=== PATIENT | female | born 2005 | race Caucasian/White ===

== ENCOUNTER 2025-05-06 06:44 | Day surgery (SDC) | payer OTHER, SELFPAY ==
[2025-04-23 09:13] VITALS: BMI 22.6
[2025-05-06] VITALS (7 sets, daily range): BP systolic 101–130; BP diastolic 62–87; PULSE 68–94; RESP 12–18; TEMP 36.1–37; O2SAT 100
--- NOTE | 2025-05-06 07:51 | WPDHPUPDATE1 ---
History and Physical Update Update Date/Time: 05/06/25 07:51 History and Physical has been reviewed, including an updated exam of the patient. There are NO changes in the patient's condition. Risks, benefits, and alternatives have been discussed and questions answered. Patient agrees to proceed with procedure.
--- OUTSIDE RECORDS SUMMARY | 2025-05-06 08:27 | XMS_ITS | Referral Summary ---
Author Organization [facility] Address [address] [place] [phone] Care Team Providers Care Video Operator Name Role Phone Evelin Mac MD Primary Care Prov ider Encounters Date Type Department Care Team Description 04/03/2025 Results Follow-Up [facility] at [address] [place] [phone] Evelin Mac MD Hepatitis C (HCV) RNA PCR, quantitative Blood, Hepatitis B Surface Antigen Blood, Hepatitis B surface antibody (immune status) Blood, Additional followed-up results: 2 03/28/2025 Orders Only [facility] at [address] [place] [address] Evelin Mac MD Need for hepatitis B screening test (Primary Dx) 03/28/2025 10:14 AM CDT - 03/28/2025 11:59 PM CDT Hospital Encounter [address] [id number] Need for hepatitis C screening test; Need for hepatitis B screening test; Encounter for screening for HIV; Projectile vomiting, unspecified whether nausea present Discharge Disposition: Discharge to home or self care 03/28/2025 Orders Only [facility] at [address] [place] [phone] Evelin Mac MD Hx of infectious mononucleosis (Primary Dx) 03/28/2025 10:15 AM CDT Lab [facility] Outpatient Lab at [address] [phone] 03/28/2025 Telephone [facility] at [address] [phone] Evelin Mac MD 03/28/2025 8:30 AM CDT Office Visit [facility] at [address] [phone] Evelin Mac MD Hx of infectious mononucleosis (Primary Dx); Projectile vomiting, unspecified whether nausea present; Dysuria; Encounter for screening for HIV; Need for hepatitis B screening test; Need for hepatitis C screening test 03/15/2025 6:08 PM CDT - 03/15/2025 11:59 PM CDT Hospital Encounter [address] [address] Abdominal pain Discharge Disposition: Discharge to home or self care 03/15/2025 Results Follow-Up [facility] [place] [address] [place] [phone] Alyssa Judge NP POCT urinalysis dipstick, Urine culture Urine, clean voided 03/15/2025 12:30 PM CDT Office Visit [facility] [place] [address] [place] [phone] Alyssa Judge NP Suspected COVID-19 virus infection (Primary Dx); Abdominal pain; Viral syndrome from Last 3 Months Allergies No known active allergies Medications NuvaRing 0.12-0.015 mg/24 hr vaginal ring 03/30/2020 Act yokasta Active Problems Problem Noted Date Diagnosed Date Encounter for screening for HIV 03/28/2025 Assessment & Plan (03/28/2025 9:53 AM CDT): -Patient agrees to HIV screening today Need for hepatitis B screening test 03/28/2025 Assessment & Plan (03/28/2025 9:53 AM CDT): -Patient agrees to hepatitis-B screening today Need for hepatitis C screening test 03/28/2025 Assessment & Plan (03/28/2025 9:54 AM CDT): -Patient agrees to hepatitis-C screening today Projectile vomiting 03/28/2025 Assessment & Plan (03/28/2025 9:54 AM CDT): -Chronic condition for past 2 years, worsened over past year -Differentials include celiac disease, gluten sensitivity, lactose intolerance, or IBS -Plan is to have patient keep a food diary and to initiate FODMAP diet to see source of symptoms. We will also test patient for celiac disease today Dysuria 03/28/2025 Assessment & Plan (03/28/2025 9:53 AM CDT): -Resolved problem, patient has no returning symptoms. 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 Monthly or less 03/28/2025 Q2: How many drinks containi ng alcohol do you have on a typical day when you are drinking? 1 or 2 03/28/2025 Q3: How often do you have si x or more drinks on one occasion? Never 03/28/2025 PHQ-2 Answer Date Recorded PHQ-2 Total Score (If total score is 3 or more points, staff should administer the PHQ-9) 0 03/28/2025 Comments No Sex and Gender Information Value Date Recorded Sex Assigned at Not on file Legal Sex Female 12:24 AM [employer] Gender Identity Not on file Sexual Orientation Not on file Last Filed Vital Signs Vital Sign Reading Time Taken Comments Blood Pressure 110/58 03/28/2025 8:30 AM CDT Pulse 66 03/28/2025 8:30 AM CDT Temperature 36.9 C (98.4 F) 03/15/2025 12:30 PM CDT Respiratory Rate 16 03/28/2025 8:30 AM CDT Oxygen Saturation 98% 03/28/2025 8:30 AM CDT Inhaled Oxygen Concentration - - Weight 62.6 kg (138 lb 1.6 oz) 03/28/2025 8:30 A M CDT Height 167.6 cm (5' 6) 03/28/2025 8:30 AM CDT Body Mass Index 22.29 03/28/2025 8:30 AM CDT Plan of Treatment Not on file Procedures Procedure Name Priority Date/Time Associated Diagnosis Comments TISSUE TRANSGLUTAMINASE, IGA Routine 03/28/2025 10:14 AM CDT Projectile vomiting, unspecified whether nausea present HIV 1/2 ANTIBODY PLUS P24 ANTIGEN Routine 03/28/2025 10:14 AM CDT Encounter for screening for HIV HEPATITIS B SURFACE ANTIBODY (IMMUNE STATUS) Routine 03/28/2025 10:14 AM CDT Need for hepatitis B screening test HEPATITIS B SURFACE ANTIGEN Routine 03/28/2025 10:14 AM CDT Need for hepatitis B screening test HEPATITIS C RNA, QUANTITATIVE, PCR Routine 03/28/2025 10:14 AM CDT Need for hepatitis C screening test POCT URINALYSIS DIPSTICK Routine 03/28/2025 8:47 AM CDT Dysuria POCT HCG, URINE Routine 03/15/2025 12:52 PM CDT Abdominal pain URINE CULTURE Routine 03/15/2025 12:42 PM CDT Abdominal pain POCT URINALYSIS DIPSTICK Routine 03/15/2025 12:41 PM CDT Suspected COVID-19 virus infection Abdominal pain POCT RAPID STREP Routine 03/15/2025 12:3 9 PM CDT Suspected COVID-19 virus infection POCT INFLUENZA A/B Routine 03/15/2025 12 :39 PM CDT Suspected COVID-19 virus infection Abdominal pain COVID-19 POC Routine 03/15/2025 12:39 PM CDT Suspected COVID-19 virus infection Abdominal pain from Last 3 Months Results * HIV 1/2 Antibody plus p24 Antigen Blood (03/28/2025 10:14 AM CDT) HIV 1/2 ab + p24 ag Nonreactive Nonreactive Comment: Nonreactive for HIV-1 antigen and HIV-1/HIV-2 antibodies. No laboratory evidence of HIV infection. If acute HIV infection is suspected, consider testing for HIV-1 RNA. Blood 03/28/2025 10:1 4 AM CDT 03/28/2025 2:09 PM CDT Evelin Mac MD LAB MICROBIOLOGY - GENERAL ORDERABLES Final Result SKY [id number] Department [place] [address] * Tissue transglutaminase IgA (TGG-IgA Ab) (03/28/2025 10:14 AM CDT) TTG ab, IgA <0.5 <=14.9 units/mL Comment: Interpretive data Negative: <15 units/mL Positive: > or equal to 15 units/mL Current interpretive data was last revised on 2017. Testing performed by: [facility], [address] [place]., [address] Blood 03/28/2025 10:1 4 AM CDT 03/28/2025 5:14 PM CDT us Evelin Mac MD LAB BLOOD ORDERABL ES Final Result Performing Organization Address [facility] de Phone Number SKY [address] [place] [address] * Hepatitis C (HCV) RNA PCR, quantitative Blood (03/28/2025 10:14 AM CDT) [facility] HCV RNA result Not Detected [facility] Comment: The quantifiable range of this assay is 15 IU/mL to 100,000,000 IU/mL (1.18 log IU/mL to 8.00 log IU/mL). Testing was performed by the [facility]IG[facility] 6800 HCV Test ([employer] Testing performed at [facility] Current Interpretive Data was last revised on 2021 Testing performed by: [facility], [address] [place]., [address] Blood 03/28/2025 10:1 4 AM CDT 03/28/2025 5:57 PM CDT us Evelin Mac MD LAB MICROBIOLOGY - GENERAL ORDERABLES Final Result Performing Organization Address [facility] [place] Number [place] [address] [address] [place] [address] [facility] * Hepatitis B surface antibody (immune status) Blood (03/28/2025 10:14 AM CDT) [facility] HBsAb (immune status) Nonreactive Comment: Interpretive Data Nonreactive: This result is consistent with a lack of immunity to Hepatitis B Virus when used in the setting of routine screening. Equivocal: The immune status of the individual should be further assessed, if appropriate, after consideration of clinical status, risk factors, and additional diagnostic information. Reactive: This result is consistent with immunity to Hepatitis B Virus when used in the setting of routine screening. Current interpretive data was last revised on 20. Blood 03/28/2025 10:1 4 AM CDT 03/28/2025 2:09 PM CDT us Evelin Mac MD LAB MICROBIOLOGY - GENERAL ORDERABLES Final Result Performing Organization Address [facility] Co de Phone Number SKY [id number] [facility] [place] [address] * Hepatitis B Surface Antigen Blood (03/28/2025 10:14 AM CDT) Pathologist [facility] HepBsAg Nonreactive Nonreactive Blood 03/28/2025 10:1 4 AM CDT 03/28/2025 2:09 PM CDT us Evelin Mac MD LAB MICROBIOLOGY - GENERAL ORDERABLES Final Result Performing Organization Address [facility] de Phone Number SKY [address] [facility] [place] [address] * (ABNORMAL) POCT urinalysis dipstick (03/28/2025 8:47 AM CDT) Color, Urine, POC Yellow Clarity, ur, POC Cloudy(A) Clear Glucose, ur, POC Negative Negative Bilirubin, ur, POC Negative Negative Ketones, ur, POC Negative Negative Specific [place], POC 1.020 1.003 - 1.030 Blood, ur, POC Hemolyzed, trace(A) Negative pH, ur, POC 6.0 5.0 - 8.0 Protein, ur, POC Negative Negative Urobilinogen, urine, POC 0.2 0.2 - 1.0 mg/dL Nitrite, ur, POC Negative Negative Leukocytes, ur, POC Large(A) Negative Lot Number [id number] Urine 03/28/2025 8:47 AM CDT us Evelin Mac MD POINT OF CARE TEST ORDERABLES Final Result * POCT hCG, urine (03/15/2025 12:52 PM CDT) HCG, ur, POC Negative Negative Lot Number [id number] QC Backgroud Clear Acceptable QC Control Line Acceptable Urine 03/15/2025 12:5 2 PM CDT Alyssa Judge NP POINT OF CARE TEST ORDERAB LES Final Result * (ABNORMAL) Urine culture Urine, clean voided (03/15/2025 12:42 PM CDT) Report Final Report: Greater than or equal to 100,000 colonies/mL of Klebsiella pneumoniae (.) Comment:Testing performed by : [facility], [address] [place]., [address] Organism KLEBSIELLA PNEUMONIAE [facility]Y [place] Urine, clean voided 03/15/2025 12:42 PM CDT 03/15/2025 7:47 PM CDT Narrative SKY - 03/17/2025 1:10 PM CDT Testing performed by [facility] Microbiology Laboratory ([phone]) Organism Antibiotic Method Susceptibility Klebsiella pneumoniae Ampicillin INTERPRETATION Resistant Klebsiella pneumoniae Cefazolin INTERPRETATION Susceptible Klebsiella pneumoniae Nitrofurantoin INTERPRETATION Susceptible Klebsiella pneumoniae Gentamicin INTERPRETATION Susceptible Klebsiella pneumoniae Trimethoprim with Sulfamethoxazole INTERPRETATION Resistant Klebsiella pneumoniae Meropenem INTERPRETATION Susceptible Klebsiella pneumoniae Cefepime INTERPRETATION Susceptible Klebsiella pneumoniae Ciprofloxacin INTERPRETATION Susceptible Klebsiella pneumoniae Ceftazidime INTERPRETATION Susceptible Klebsiella pneumoniae Ceftriaxone INTERPRETATION Susceptible Klebsiella pneumoniae Piperacillin/Tazobactam INTERPRE TATION Susceptible Klebsiella pneumoniae Cephalexin INTERPRETATION Susceptible Klebsiella pneumoniae Cefuroxime-axetil INTERPRETATION Susceptible Klebsiella pneumoniae Cefdinir INTERPRETATION Susceptible Alyssa Judge NP LAB MICROBIOLOGY - GENERAL ORDERABLES Final Result SKY [place] [address] Department [place] [address] * (ABNORMAL) POCT urinalysis dipstick (03/15/2025 12:41 PM CDT) [facility] Color, Urine, POC Annel Clarity, ur, POC Clear Clear Glucose, ur, POC Negative Negative Bilirubin, ur, POC Negative Negative Ketones, ur, POC Negative Negative Specific [place], POC 1.020 1.003 - 1.030 Blood, ur, POC Trace(A) Negative pH, ur, POC 6.0 5.0 - 8.0 Protein, ur, POC Negative Negative Urobilinogen, urine, POC 0.2 0.2 - 1.0 mg/dL Nitrite, ur, POC Negative Negative Leukocytes, ur, POC Small(A) Negative Lot Number [id number] Urine 03/15/2025 12:4 1 PM CDT Alyssa Judge NP POINT OF CARE TEST ORDERAB LES Final Result * COVID-19 POC (03/15/2025 12:39 PM CDT) [facility] COVID-19 Ag POC (BD Veritor) Presumptive Negative Presumptive Negative, Invalid [facility] Nasal 03/15/2025 12:3 9 PM CDT Result [facility] Alyssa Judge NP POINT OF CARE TEST ORDERAB LES Final Result [facility] [address] [place] [address] * POCT influenza A/B (03/15/2025 12:39 PM CDT) [facility] Rapid Influenza A Ag Negative Negative, Invalid Rapid Influenza B Ag Negative Negative, Invalid Nasal 03/15/2025 12:3 9 PM CDT Alyssa Judge NP POINT OF CARE TEST ORDERAB LES Final Result * POCT rapid strep A (03/15/2025 12:39 PM CDT) [facility] Rapid Strep A, POC Negative Negative Swab 03/15/2025 12:3 9 PM CDT Alyssa Judge NP POINT OF CARE TEST ORDERAB LES Final Result from Last 3 Months [facility] Care Teams Video Operator Relationship Specialty Start Date End Date Evelin Mac MD [address] [facility] [place] [address] PCP - General Family Medicine 03/28/25
--- OUTSIDE RECORDS SUMMARY | 2025-05-06 08:27 | XMS_ITS | Clinical Summary ---
Author Organization [facility] Address [facility] [place] [address] Care Team Providers Care Hot Saw Operator Name Role Phone Evelin Mac MD Primary Care Prov ider Allergies No known active allergies Medications NuvaRing [...] recur rent infections and monocytosis 03/28/2025 03/28/2025 Encounters Date Type Department Care Team Description 04/03/2025 Results Follow-Up [facility] at [address] [phone] Evelin Mac MD Hepatitis C (HCV) RNA PCR, quantitative Blood, Hepatitis B Surface Antigen Blood, Hepatitis B surface antibody (immune status) Blood, Additional followed-up results: 2 03/28/2025 10:15 AM CDT Lab [facility] Outpatient Lab at [address] [phone] 03/28/2025 10:14 AM CDT - 03/28/2025 11:59 PM CDT Hospital Encounter [address] [address] Need for hepatitis C screening test; Need for hepatitis B screening test; Encounter for screening for HIV; Projectile vomiting, unspecified whether nausea present Discharge Disposition: Discharge to home or self care 03/28/2025 8:30 AM CDT Office Visit [facility] at [address] [address] Evelin Mac MD Hx of infectious mononucleosis (Primary Dx); Projectile vomiting, unspecified whether nausea present; Dysuria; Encounter for screening for HIV; Need for hepatitis B screening test; Need for hepatitis C screening test 03/28/2025 Orders Only [facility] at [address] [place] [address] Evelin Mac MD Need for hepatitis B screening test (Primary Dx) 03/28/2025 Orders Only [facility] Medical [facility] at [address] [place] [address] Evelin Mac MD Hx of infectious mononucleosis (Primary Dx) 03/28/2025 Telephone [facility] at [address] [place] [phone] Evelin Mac MD 03/15/2025 6:08 PM CDT - 03/15/2025 11:59 PM [place] [address] Abdominal pain Discharge Disposition: Discharge to home or self care 03/15/2025 12:30 PM CDT Office Visit [facility] Medical [facility] at [address] [place] [phone] Alyssa Judge NP Suspected COVID-19 virus infection (Primary Dx); Abdominal pain; Viral syndrome 03/15/2025 Results Follow-Up [facility] Care at [address] [place] [phone] Alyssa Judge NP POCT urinalysis dipstick, Urine culture Urine, clean voided from Last 3 Months Immunizations Immunization Administration Dates Next Due PPD TEST 02/07/2023 Family History Medical History Relation Name Comments Breast cancer Maternal Grandmother Diabetes Maternal Grandmother Relation Name Status Comments Maternal Grandmother Social History Tobacco Use Types Packs/Day Years [...] on file 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 Gender Identity Not on file Sexual Orientation Not on file Obstetrics History Last Filed Vital Signs Vital Sign Reading [...] 03/28/2025 8:30 AM CDT Plan of Treatment Health Maintenance Due Date Last Done Comments Regular Well Visit/Exam 18-64 2022 Influenza Vaccine (Season Ended) 2025 DTaP/Tdap/Td Vaccine (7 - Td or Tdap) 02/28/2026 02/29/2016, 02/02/2010, 01/03/2006, Additional history exists Depression Screening 03/28/2026 03/28/2025 Hepatitis B Screening Completed 01/10/2005 , 2004, 2004, Additional history exists Pneumococcal vaccine <65 Completed 006, 01/10/2005, 2004, Additional history exists Varicella Vaccines Completed 02/02/2010, 07/19/2005 Meningococcal Vaccine Completed 04/28/2021, 016 Meningococcal B Vaccine Completed 05/24/2022, 04/28 HPV Vaccines Completed 09/26/2022, 04/30, 04/28/2021 Hepatitis C Screening Completed 03/28/2025 Procedures Procedure Name Priority Date/Time Associated Diagnosis [...] GENERAL ORDERABLES Final Result Performing Organization Address [facility] [place] Number [place] [address] [place] Department [facility] [address] * Tissue transglutaminase IgA (TGG-IgA Ab) (03/28/2025 10:14 AM CDT) [facility] TTG ab, IgA <0.5 <=14.9 units/mL Comment: Interpretive data Negative: <15 units/mL Positive: > or equal to 15 units/mL Current interpretive data was last revised on 2017. Testing performed by: [facility], [address] [place]., [address] Blood 03/28/2025 10:1 4 AM CDT 03/28/2025 5:14 PM CDT Result [facility] Evelin Mac MD LAB BLOOD ORDERABL ES Final Result Performing Organization Address [facility] [place] [address] [place] Department [place] [address] * Hepatitis C (HCV) RNA PCR, quantitative Blood (03/28/2025 10:14 AM CDT) [facility] HCV RNA result Not Detected [facility] Comment: The quantifiable range of this assay is 15 IU/mL to 100,000,000 IU/mL (1.18 log IU/mL to 8.00 log IU/mL). Testing was performed by the [employer] 6800 HCV Test ([employer] Testing performed at [facility] Current Interpretive Data was last revised on 2021 Testing performed by: [facility], [address] [facility], [place]., [address] Blood 03/28/2025 10:1 4 AM CDT 03/28/2025 5:57 PM CDT us Evelin Mac MD LAB MICROBIOLOGY - GENERAL ORDERABLES Final Result Performing Organization Address [facility] Co de Phone Number SKY [place]IS [address] [address] Department [place] [address] [facility] * Hepatitis B surface antibody (immune status) Blood (03/28/2025 10:14 AM CDT) HBsAb (immune status) Nonreactive Comment: Interpretive Data [...] GENERAL ORDERABLES Final Result Performing Organization Address [facility] Co de [place] Number [place] [address] [address] [place] [address] * Hepatitis B Surface Antigen Blood (03/28/2025 10:14 AM CDT) HepBsAg Nonreactive Nonreactive Blood 03/28/2025 10:1 4 AM CDT 03/28/2025 2:09 PM CDT Evelin Mac MD LAB MICROBIOLOGY - GENERAL ORDERABLES Final Result [place] [address] [address] Department [place] [address] * (ABNORMAL) POCT urinalysis dipstick (03/28/2025 8:47 AM CDT) Color, Urine, POC Yellow Clarity, ur, POC Cloudy(A) Clear Glucose, ur, POC Negative Negative Bilirubin, ur, POC Negative Negative Ketones, ur, POC Negative Negative Specific [place], POC 1.020 1.003 - 1.030 Blood, ur, POC Hemolyzed, trace(A) Negative pH, ur, POC 6.0 5.0 - 8.0 Protein, ur, POC Negative Negative Urobilinogen, urine, POC 0.2 0.2 - 1.0 mg/dL Nitrite, ur, POC Negative Negative Leukocytes, ur, POC Large(A) Negative Lot Number [id number] Urine 03/28/2025 8:47 AM CDT Evelin Mac MD POINT OF CARE TEST ORDERABLES Final Result * POCT hCG, urine (03/15/2025 12:52 PM CDT) Pathologist [facility] HCG, ur, POC Negative Negative Lot Number [id number] QC Backgroud Clear Acceptable QC Control Line Acceptable Urine 03/15/2025 12:5 2 PM CDT Alyssa Judge NP POINT OF CARE TEST ORDERAB LES Final Result * (ABNORMAL) Urine culture Urine, clean voided (03/15/2025 12:42 PM CDT) Report Final Report: Greater than or equal to 100,000 colonies/mL of Klebsiella pneumoniae (.) Comment:Testing performed by : [facility], [address] [facility], [place]., [address] Organism KLEBSIELLA PNEUMONIAE SKY HARRIS Urine, clean voided 03/15/2025 12:42 PM CDT 03/15/2025 7:47 PM CDT Narrative SKY HARRIS - 03/17/2025 1:10 PM CDT Testing performed by [facility] ([phone]) Organism Antibiotic Method Susceptibility Klebsiella pneumoniae Ampicillin [...] MICROBIOLOGY - GENERAL ORDERABLES Final Result SKY [address] [address] Department [place] [address] * (ABNORMAL) POCT urinalysis dipstick (03/15/2025 12:41 PM CDT) Pathologist [facility] Color, Urine, POC Annel Clarity, ur, POC Clear Clear Glucose, ur, POC Negative Negative Bilirubin, ur, POC Negative Negative Ketones, ur, POC Negative Negative Specific [place], POC 1.020 1.003 - 1.030 Blood, ur, POC Trace(A) Negative pH, ur, POC 6.0 5.0 - 8.0 Protein, ur, POC Negative Negative Urobilinogen, urine, POC 0.2 0.2 - 1.0 mg/dL Nitrite, ur, POC Negative Negative Leukocytes, ur, POC Small(A) Negative Lot Number [id number] Urine 03/15/2025 12:4 1 PM CDT Alyssa Judge NP POINT OF CARE TEST ORDERAB LES Final Result * COVID-19 POC (03/15/2025 12:39 PM CDT) Pathologist [facility] COVID-19 Ag POC (BD Veritor) Presumptive Negative Presumptive Negative, Invalid [facility] Nasal 03/15/2025 12:3 9 PM CDT Alyssa Judge NP POINT OF CARE TEST ORDERAB LES Final Result [facility] [address] [place] [address], [facility] * POCT influenza A/B (03/15/2025 12:39 PM CDT) Rapid Influenza A Ag Negative Negative, Invalid Rapid Influenza B Ag Negative Negative, Invalid Nasal 03/15/2025 12:3 9 PM CDT Alyssa Judge NP POINT OF CARE TEST ORDERAB LES Final Result * POCT rapid strep A (03/15/2025 12:39 PM CDT) Rapid Strep A, POC Negative Negative Swab 03/15/2025 12:3 9 PM CDT Alyssa Judge NP POINT OF CARE TEST ORDERAB LES Final Result from Last [address] [facility] Address: [address] [place] [address] [facility] [address] [place] [address] Care Teams Hot Saw Operator Relationship Specialty Start Date End Date Evelin Mac MD [address] [address] PCP - General Family Medicine 03/28/25
--- OUTSIDE RECORDS SUMMARY | 2025-05-06 08:27 | XMS_ITS | Data Portability ---
Author Organization [facility] Address [address] [place] [address] Care Team Providers Care Press Officer Name Role Phone ASYA DENISE Primary Care Provider [phone] Assessment Encounter Date Assessment Date Assessment LastModified by Organization Details LastModified Time 03/30/2020 03/30/2020 Annual gynecological exam performed. Patient will come back in a year unless there are new symptoms. [email or web address] Not available 03/30/2020 11:31:55 05/04/2021 05/04/2021 Annual gynecological exam performed. Patient will come back in a year unless there are new symptoms. Not available 05/04/2021 12:10:26 01/17/2023 01/17/2023 Annual gynecological exam performed. Patient will come back in a year unless there are new symptoms. Not available 01/17/2023 17:02:37 03/26/2024 03/26/2024 Annual gynecological exam performed. Patient will come back in a year unless there are new symptoms. [email or web address] Not available 03/26/2024 14:04:44 Plan of Treatment Reminders Order Date Submit Date Provider Last Modified By Organization Details Last Modified Time Details Appointments None recorded. Lab None recorded. Referral None recorded. Procedures None recorded. Surgeries None recorded. Imaging None recorded. Medication Orders NuvaRing 0.12 mg-0.015 mg/24 hr vaginal 2023 024 [id number], [address], [place], [id number], 4 14:18:27 NuvaRing 0.12 mg-0.015 mg/24 hr vaginal 2022 023 [facility][id number], [address], [place], [id number], 3 17:08:10 NuvaRing 0.12 mg-0.015 mg/24 hr vaginal 2020 021 [facility] #[id number], [address], [place], [id number], 1 14:53:59 NuvaRing 0.12 mg-0.015 mg/24 hr vaginal 2019 020 [facility] [employer] [id number], [address], [place], [id number], 0 11:50:04 Patient TargetsNo targets recorded. Patient InstructionsNo instructions recorded. Reason for Referral None Reported. Problems Name Problem SNOMED Code Status Onset Date Resolution Date Notes Provider Name and Address Organization Details Recorded Time Pregnanc y test negative 939065852 Completed 201605/04/2021 Encounter for test, result negative; Recorded Elsewhere : No Locati on: [facility] So urce: EHR Chron ic: N Practic e ID: [id number] Bill able Time: 03:30:00 PM Nat Ugalde [facility] 1 12:27:[address] Concept Completed 201805/04/2021 Encntr for routine child health exam w/o abnormal findings; Recorded Elsewhere : No Locati on: [facility] So urce: EHR Chron ic: N Practic e ID: [id number] Bill able Time: 09:30:00 AM Nat Ugalde [facility] 1 12:27:31 Bleeding [id number] Completed 201705/04/2021 Abnormal uterine and vaginal bleeding, unspecifi ed;Record ed Elsewhere : No Locati on: [facility] So urce: EHR Chron ic: N Practic e ID: [id number] Bill able Time: 11:30:00 AM Nat Ugalde [facility] 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 12:27:33 Problem Notes None recorded. Procedures Surgical History Date Name Laterality Status Provider Name and Address Organization Details Recorded Time 0 extraction of wisdom tooth completed Clementina Gonzalez [facility] 03/26/2024 14:06:24 Imaging Results None recorded. Procedure Notes None recorded. Medical Equipment None Reported. Allergies No known drug allergies Medications Name Sig Start Date Stop Date Status Note LastModified by Organization Details LastModified Time amoxicill in 500 mg capsule 01/17 completed Not Available Not Available Not Available hydrocodo ne 5 mg-acetam inophen 325 mg tablet 01/17 completed Not Available Not Available Not Available Prometriu m 100 mg capsule take 1 tablet by oral route once daily at bedtime 03/12 completed Prescrib ed Elsewher e: No Locat ion: [facility] M odify By: dani dietrich DateTime : 10/05/20 17 05:00:00 PM Not Available Not Available Not Available amoxicill in 875 mg tablet TAKE 1 TABLET BY MOUTH EVERY 12 HOURS 03/26 completed Not Available Not Available Not Available lorazepam 1 mg tablet TAKE 1 TABLET BY MOUTH 1 HOUR PRIOR TO APPOINTM ENT 05/04 completed Not Available Not Available Not Available albuterol sulfate HFA 90 mcg/actua tion aerosol inhaler INHALE 2 PUFFS BY MOUTH EVERY 4 HOURS NEEDED 01/17 completed Not Available Not Available Not Available albuterol sulfate 2 mg tablet 05/04 completed Not Available Not Available Not Available amoxicill in 875 mg-potass ium clavulana te 125 mg tablet TAKE 1 TABLET BY MOUTH TWICE DAILY FOR 7 DAYS 01/17 completed Not Available Not Available Not Available amoxicill in 500 mg-potass ium clavulana te 125 mg tablet TAKE 1 TABLET BY MOUTH THREE TIMES DAILY FOR 10 DAYS 05/04 completed Not Available Not Available Not Available NuvaRing 0.12 mg-0.015 mg/24 hr vaginal INSERT 1 RING VAGINALL Y EVERY MONTH, LEAVE IN PLACE FOR 3 WEEKS, replace at end of 3rd week, skipping placebo week for continuo us cycling therapy. 2023 active Not Available Not Available Not Avai lable albuterol sulfate 05/04 completed Not Available Not Available Not Available ID NOW COVID-19 Test Kit TAKE DIRECTED 05/04 completed Not Available Not Available Not Available Vitals Date Recorded Body weight Systolic And Diastolic Provider Name and Address Organization Details Last Updated DateTime 01/17/2023 30512.44 g 115/70 mm[Hg] Nat Grissom [facility] 01/17/2023 17:02:55 Date Recorded Body height Body mass index (BMI) Body mass index (BMI) [Percentile] Per age and sex Body weight Systolic And Diastolic Provider Name and Address Organization Details Last Updated DateTime 03/26/2024 163.83 cm 24.3 kg/m2 75 % 56742.3 g 112/72 mm[Hg] Clementina Gonzalez [facility] 4 14:05:16 Date Recorded Body height Body mass index (BMI) Body mass index (BMI) [Percentile] Per age and sex Body weight Systolic And Diastolic Provider Name and Address Organization Details Last Updated DateTime 03/30/2020 1981.2 cm 0.2 kg/m2 1 % 61593.7 9 g 118/71 mm[Hg] Aurelia Dejesus [facility] 0 11:32:27 Date Recorded Body height Body mass index (BMI) Body mass index (BMI) [Percentile] Per age and sex Body weight Systolic And Diastolic Provider Name and Address Organization Details Last Updated DateTime 05/04/2021 163.83 cm 23.3 kg/m2 75 % 41161.7 5 g 124/75 mm[Hg] Nat Ugalde [facility] 14:38:39 Social History Question Answer Notes LastModified by Organizat ion Details LastModified Time Tobacco Smoking Status Never Smoker Nat Grissom camron [facility] 01/17/2023 17:02:59 Do You Have An Advance Directive? No Information n ot available 05/04/2021 Are You Blind Or Do You Have Difficulty Seeing? No Information n ot available 05/04/2021 What Is Your Level Of Caffeine Consumption? Occasional Information not available 05/04/2021 How Much Tobacco Do You Chew? None Information not available 05/04/2021 In The 14 Days Before Symptom Onset, Have You Had Close Contact With A Laboratory-confirm ed COVID-19 While That Case Was Ill? No Information n ot available 05/04/2021 In The 14 Days Before Symptom Onset, Have You Had Close Contact With A Person Who Is Under Investigation For COVID-19 While That Person Was Ill? No Information not available 05/04/2021 Have You Been To An Area Known To Be High Risk For COVID-19? No Information not available 05/04/2021 Are You Deaf Or Do You Have Serious Difficulty Hearing? No Information not available 05/04/2021 What Type Of Diet Are You Following? REGULAR Information n ot available 05/04/2021 What Is The Highest Grade Or Level Of School You Have Completed Or The Highest Degree You Have Received? [id number] Information not available 01/17/2023 Are There Any Guns Present In Your Home? Yes Information not available 05/04/2021 Do You Use Protection During Sex? Always Information not available 05/04/2021 Do You Use Your Seat Belt Or Car Seat Routinely? Yes Information not available 05/04/2021 Do You Have Smoke And Carbon Monoxide Detectors In Your Home? Yes Information not available 05/04/2021 How Much Tobacco Do You Smoke? No Information not available 05/04/2021 Do You Use Sunscreen Routinely? Yes Information not available 05/04/2021 Have You Used IV Drugs? No Information not available 05/04/2021 Do You Have Difficulty Walking Or Climbing Stairs? No Information not available 01/17/2023 Sex: Unknown Functional Status Question Answer Note LastModified by Organizat ion Details LastModified Time Do you use any illicit or recreational drugs? No Information not available 05/04/2021 What is your level of alcohol consumption? None Information not available 05/04/2021 Are you able to walk? YESWOREST Information not available 05/04/2021 Are you able to care for yourself? 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 No Information not available 01/17/2023 What is your exercise level? Moderate Information not available 05/04/2021 Mental Status Question Answer Note LastModified by Organization D etails LastModified Time Do you feel stressed (tense, restless, nervous, or anxious, or unable to sleep at night)? [id number] Information not available 05/04/2021 Family History Relationship Description Onset Age of this Age Resolved Age Notes LastModified by Organization Details LastModified Time Maternal Grandmother Carcinoma in situ of breast Not available 2022 16:56:39 Maternal Grandmother Diabetes mellitus [email or web address] Not available 2019 11:33:59 Maternal Grandmother Hypercholest erolemia [email or web address] Not available 2019 11:34:14 Maternal Grandmother Pulmonary embolism [email or web address] Not available 2022 16:56:39 Maternal Grandmother Hypertensive disorder [email or web address] Not available 2019 11:34:55 Maternal Grandmother Disorder of thyroid gland [email or web address] Not available 2019 11:35:07 Medical History Condition Response Allergies (Food, seasonal, environmental ) Y Other N Breast Cancer N Drug/Latex Allergies/Reactions N Blood Transfusion N Dermatologic Disorders N Lung Disease N Defects or Inherited Disease N Breast Problem N Gestational Diabetes N Hematologic disorders N Anesthesia Complications N History of STI N Deep Vein Thrombosis N Polycystic ovary syndrome N Anxiety Disorder N Autoimmune disease N Arthritis N Infertility N Polyps N Acid Reflux (GERD) N History of abnormal pap N Cancer N Stroke N Varicosities N Neurologic/Epilepsy N Endometriosis N High Cholesterol N Headaches N Fibromyalgia N Kidney Disease N Heart Problems N Kidney or Bladder Problems N Thyroid Problems N GI Problems N Eating Disorder N Anemia N Art (IVF or FET) N Psychiatric Illness N Ovarian Cancer N Diabetes N Pulmonary (TB, Asthma) N Hepatitis/Liver Disease N Eczema N Urinary Tract Infection N Abuse/Domestic Violence N Asthma Y Trauma/Violence N Depression/ depression N Heart Disease N Pre-Eclampsia N Hypertension N Osteoporosis N Thrombophilias N Gynecological History Statement/Question Response Flow Moderate Date of Last Mammogram Date of LMP 02/28/2024 N Was last menstrual period normal Y STIs/STDs N HPV Vaccine Y Duration of Flow (days) 4 Current Control Method Vaginal Rin g Frequency of Cycle (Q days) 28 Sexually Active? N Menses Monthly Y Date of DEXA bone scan Age of first menstrual cycle 11 Date of Last Pap Smear Sexual Problems? N LMP Definite N Obstetrics History GPAL:G 0 P 0 0 0 0 Type Value Living 0 Total 0 Past Encounters Encounter ID Performer Location Encounter Start Date Encounter Closed Date Diagnosis/Indication Diagnosis SNOMED-CT Code Diagnosis ICD10 Code Diagnosis Note [id number] [facility] [address] [address] 03/30/2020 11:24:35 03/30/2020 12:12:04 Gynecologic examination 90197002 Z01.419 Z30.8 Take Calcium with Vitamin D 1200mg daily if not receiving in daily diet. It is strongly advised to have an annual flu shot and up can obtain at most pharmacies . If you have not had a TDap shot in the last 10 years you should obtain one as well. Discussed with patient & provided with informatio n regarding Gardisil vaccine to prevent the 4 strains for HPV that cause cervical cancer. Encourage safe sexual practices, to use condoms and limit partners if not already in a monogamous relationsh ip. Do monthly self breast exams. BRCA testing is now available for patients with strong genetic history of female cancer. If interested contact the office. Engage in daily exercise of low impact aerobic exercise 45-60 minutes 4-5 times weekly. Avoid tobacco, illicit drugs, and alcohol. This lifestyle behavior pattern will lead to less health conditions and longer life span. If BMI greater than 25 weight watchers or dietary consult advised. Pap smear is not recommende d prior to the age of 21. If you have any concerns, pelvic, or vaginal problems we can discuss testing. Patient received above instructio ns, and questions have been answered. If you have any questions please call or respond to this email. Patient was made aware of the patient portal and may obtain a paper copy of today's plan if desired. [facility] Jose Capone sent [id number] [facility] [address] [address] 05/04/2021 14:26:04 05/04/2021 14:57:17 Secondary dysmenorrhea 09335884 N94.5 Happy on this method.RF sent Gynecologi c examination 63539329 Z01.419 Z30.8 Take Calcium with Vitamin D 1200mg daily if not receiving in daily diet. It is strongly advised to have an annual flu shot and up can obtain at most pharmacies . If you have not had a TDap shot in the last 10 years you should obtain one as well. Discussed with patient & provided with informatio n regarding Gardisil vaccine to prevent the 4 strains for HPV that cause cervical cancer. Encourage safe sexual practices, to use condoms and limit partners if not already in a monogamous relationsh ip. Do monthly self breast exams. BRCA testing is now available for patients with strong genetic history of female cancer. If interested contact the office. Engage in daily exercise of low impact aerobic exercise 45-60 minutes 4-5 times weekly. Avoid tobacco, illicit drugs, and alcohol. This lifestyle behavior pattern will lead to less health conditions and longer life span. If BMI greater than 25 weight watchers or dietary consult advised. Pap smear is not recommende d prior to the age of 21. If you have any concerns, pelvic, or vaginal problems we can discuss testing. Patient received above instructio ns, and questions have been answered. If you have any questions please call or respond to this email. Patient was made aware of the patient portal and may obtain a paper copy of today's plan if desired. [facility] Jose Capone sent [id number] Rosa M Chinchilla [facility] [address] [address] 01/17/2023 16:56:16 01/17/2023 17:14:49 Gynecologic examination [id number] Z01.419 Z30.8 Take Calcium with Vitamin D 1200mg daily if not receiving in daily diet. It is strongly advised to have an annual flu shot and up can obtain at most pharmacies . If you have not had a TDap shot in the last 10 years you should obtain one as well. Discussed with patient & provided with informatio n regarding Gardisil vaccine to prevent the 4 strains for HPV that cause cervical cancer. Encourage safe sexual practices, to use condoms and limit partners if not already in a monogamous relationsh ip. Do monthly self breast exams. BRCA testing is now available for patients with strong genetic history of female cancer. If interested contact the office. Engage in daily exercise of low impact aerobic exercise 45-60 minutes 4-5 times weekly. Avoid tobacco, illicit drugs, and alcohol. This lifestyle behavior pattern will lead to less health conditions and longer life span. If BMI greater than 25 weight watchers or dietary consult advised. Pap smear is not recommende d prior to the age of 21. If you have any concerns, pelvic, or vaginal problems we can discuss testing. Patient received above instructio ns, and questions have been answered. If you have any questions please call or respond to this email. Patient was made aware of the patient portal and may obtain a paper copy of today's plan if desired. Pap/hpv due age 20yo if SA.STD Screen declined. Never SAGenetic Screen discussedC olon Screen naDexa Screen naRoutine Labs not indicated Secondary dysmenorrhea [id number] N94.5 Happy on this method.RF sent x 1yrCall if need Rx transferre d to one closer to her college. [id number] Rosa M Chinchilla [facility] [address] [address] 03/26/2024 13:57:23 03/26/2024 14:17:46 Gynecologic examination [id number] Z01.419 Z30.8 Take Calcium with Vitamin D 1200mg daily if not receiving in daily diet. It is strongly advised to have an annual flu shot and up can obtain at most pharmacies . If you have not had a TDap shot in the last 10 years you should obtain one as well. Discussed with patient & provided with informatio n regarding Gardisil vaccine to prevent the 4 strains for HPV that cause cervical cancer. Encourage safe sexual practices, to use condoms and limit partners if not already in a monogamous relationsh ip. Do monthly self breast exams. BRCA testing is now available for patients with strong genetic history of female cancer. If interested contact the office. Engage in daily exercise of low impact aerobic exercise 45-60 minutes 4-5 times weekly. Avoid tobacco, illicit drugs, and alcohol. This lifestyle behavior pattern will lead to less health conditions and longer life span. If BMI greater than 25 weight watchers or dietary consult advised. Pap smear is not recommende d prior to the age of 21. If you have any concerns, pelvic, or vaginal problems we can discuss testing. Patient received above instructio ns, and questions have been answered. If you have any questions please call or respond to this email. Patient was made aware of the patient portal and may obtain a paper copy of today's plan if desired. Pap/hpv due age 20yo if SA.STD Screen declined. Never SAGenetic Screen discussedC olon Screen naDexa Screen naRoutine Labs not indicated Secondary dysmenorrhea 85504410 N94.5 Happy on this method.RF sent x 1yrCall if need Rx transferre d to one closer to her college. Health Concerns Section Related Observation LastModified by Organization Detai ls LastModified Time None Recorded Concern Status LastModified by Organization Details LastModified Time None Recorded Advance Directives Directive N: Payers Insurance Date Sequence Insurance Name Policy Number Policy [place] Covered Member ID [place] Member ID Guarantor Name 03/23/2024 1 [facility] [id number] Shimon Cho [id number] Shimon Cho Notes Date Note Type Note Provider Name and Address Organization Details Recorded Time 03/30/2020 text/html Annual GYNReport ed bypatient.History:no gynecologic complaints Menstrual cycle:Normal menses Urinary symptoms:No hematuria; No incontinence Vulva:No genital lesion Vagina:Normal vaginal discharge Breast:No breast pain; No breast lump; No nipple discharge Current Contraception:Satisf ied with current contraception; Nuvaring; Not sexually active Sexual complaints:No sexual complaints; No pain during intercourse; Normal libido Menopausal Symptoms:No menopausal symptoms; Normal vaginal lubrication Psychological symptoms:No depression; No anxiety; No PMDD Preventive measures:Encourage self breast examination; Encourage regular exercise; Encourage no tobacco use [facility] [address], [place], [address], [facility] 03/30/2020 11:52:56 05/04/2021 text/html Annual GYNReport ed bypatient.History:no gynecologic complaints Menstrual cycle:Normal menses Urinary symptoms:No hematuria; No incontinence Vulva:No genital lesion Vagina:Normal vaginal discharge Breast:No breast pain; No breast lump; No nipple discharge Current Contraception:Nuvari ng; Not sexually active Sexual complaints:No sexual complaints; No pain during intercourse; Normal libido Menopausal Symptoms:No menopausal symptoms; Normal vaginal lubrication Psychological symptoms:No depression; No anxiety; No PMDD Preventive measures:Encourage self breast examination; Encourage regular exercise; Encourage no tobacco use; Encourage regular mammograms starting age 40 [facility] [address], [place], [address], [facility] 05/04/2021 14:55:52 01/17/2023 text/html Annual GYNReport ed bypatient.History:no gynecologic complaints Menstrual cycle:Normal menses Urinary symptoms:No hematuria; No incontinence Vulva:No genital lesion Vagina:Normal vaginal discharge Breast:No breast pain; No breast lump; No nipple discharge Current Contraception:Satisf ied with current contraception; Nuvaring Sexual complaints:No sexual complaints; No pain during intercourse; Normal libido Menopausal Symptoms:No menopausal symptoms; Normal vaginal lubrication Psychological symptoms:No depression; No anxiety; No PMDD Preventive measures:Encourage self breast examination; Encourage regular exercise; Encourage no tobacco use; Encourage regular mammograms starting age 40 [facility] [address], [place], [address], [facility] 01/17/2023 17:11:31 03/26/2024 text/html Annual GYNReport ed bypatient.History:no gynecologic complaints Menstrual cycle:Normal menses Urinary symptoms:No hematuria; No incontinence Vulva:No genital lesion Vagina:Normal vaginal discharge Breast:No breast pain; No breast lump; No nipple discharge Current Contraception:Satisf ied with current contraception; Oral contraceptives Sexual complaints:No sexual complaints; No pain during intercourse; Normal libido Menopausal Symptoms:No menopausal symptoms; Normal vaginal lubrication Psychological symptoms:No depression; No anxiety; No PMDD Preventive measures:Encourage self breast examination; Encourage regular exercise; Encourage no tobacco use; Encourage regular mammograms starting age 40 Rosa M Chinchilla, [facility] [address], [place], [address], [facility] 03/26/2024 14:16:27 OBGyn Episode No OBEpisode recorded.
--- NOTE | 2025-05-06 08:29 | WPDANESEPPF ---
Anes - Initial Pre Proc Eval Procedure: Operation Date: 05/06/25 09:30 Proposed Procedures p Tonsillectomy and Adenoidectomy - Tone Arredondo MD Date/Time: 05/06/25 08:29 Surgeon: Tone Arredondo MD Pre Op Diagnosis: Hypertrophy of Tonsils and Adenoids Patient Data Age: 19 Gender: F Height: 1.65 m Weight: 61.7 kg Allergies Allergy/AdvReac Type Severity Reaction Status Date / Time No Known Allergies Allergy Unverified 04/23/25 09:06 Home Medications ?Medication ?Instructions ?Recorded ?Confirmed ?Type albuterol sulfate 90 mcg/actuation 2 puff inhalation Q6H PRN 04/04/25 04/23/25 History aerosol inhaler shortness of breath or wheezing etonogestrel 0.12 mg-ethinyl 1 vag ring vaginal DIRECTED 04/04/25 04/23/25 History estradiol 0.015 mg/24 hr vaginal ring Patient hx anesthesia problems: none Family hx anesthesia problems: none Results Review: All pre-operative results and documents have been reviewed as part of the pre-operative evaluation. [facility] Social History Social History (Updated 04/04/25 @ 10:03 by Cleveland Jain MA) Smoking status: Never smoker Second hand tobacco smoke exposure: Yes Alcohol intake: current Drinks per week: 2 Substance use: never Substance use type: does not use Living arrangements: with family Spiritual care concerns: No Anes - Eval Final PreProcedure Day of Procedure 05/06/25 08:29 Heart: regular rate and rhythm Lungs: clear to auscultation Airway: Mallampati scale class 1 Last oral intake: >/= 8 hours ASA classification: II Anesthetic plan: proceed Anesthesia type and monitoring: general Results Review: All pre-operative results and documents have been reviewed as part of the pre-operative evaluation. Informed Consent: The patient's anesthetic plan and its attendant risks and benefits were discussed with the patient/family/POA. Questions were solicited and answers provided to the satisfaction of the patient/family/POA.
[2025-05-06] MEDS: ACETAMINOPHEN 500 MG TABLET 1000 MG PO (08:47)
[2025-05-06] MEDS: LACTATED RINGERS 1,000 ML 30 ML IV CONT (09:07)
--- NOTE | 2025-05-06 09:34 | PM.IMHP ---
H&P: HPI History of Present Illness Date/Time: 05/06/25 09:34 Chief Complaint: Recurrent tonsillitis snoring adenoid hypertrophy Review of Systems Review of Systems: All systems reviewed & are unremarkable except as noted in HPI and below [facility] Social History Social History (Updated 04/04/25 @ 10:03 by Cleveland Jain MA) Smoking status: Never smoker Second hand tobacco smoke exposure: Yes Alcohol intake: current Drinks per week: 2 Substance use: never Substance use type: does not use Living arrangements: with family Spiritual care concerns: No Meds Home Medications and Allergies Home Medications ?Medication ?Instructions ?Recorded ?Confirmed ?Type albuterol sulfate 90 mcg/actuation 2 puff inhalation Q6H PRN 04/04/25 05/06/25 History aerosol inhaler shortness of breath or wheezing etonogestrel 0.12 mg-ethinyl 1 vag ring vaginal DIRECTED 04/04/25 05/06/25 History estradiol 0.015 mg/24 hr vaginal ring Allergies Allergy/AdvReac Type Severity Reaction Status Date / Time No Known Allergies Allergy Unverified 05/06/25 08:33 Vital Signs Vital Signs - 24 hr 05/06/25 08:45 Temperature 37.0 C Pulse Rate 68 Respiratory Rate 18 Blood Pressure 108/70 Pulse Oximetry 100 Oxygen Delivery Room Air Exam Narrative: Chronic large tonsils large adenoids Assessment and Plan Assessment and plan (1) Tonsillar hypertrophy: Code(s): J35.1 - Hypertrophy of tonsils Status: Acute Assessment and Plan: Plan or tonsillectomy and adenoidectomy. See clinic note for risks discussed mother patient voiced understanding and agreed. (2) Recurrent tonsillitis: Code(s): J03.91 - Acute recurrent tonsillitis, unspecified Status: Acute (3) Adenoid hypertrophy: Code(s): J35.2 - Hypertrophy of adenoids Status: Acute (4) Snoring: Code(s): R06.83 - Snoring Status: Acute
--- NOTE | 2025-05-06 10:27 | W.PM.PROC2 ---
Procedure Note - Detailed Date of Procedure 05/06/25 Pre-op Diagnosis Hypertrophy of Tonsils and Adenoids Post-op Diagnosis Same Procedure Performed Tonsillectomy, adenoidectomy Surgeon Tone Arredondo MD Anesthesia General Indications See above Findings Large tonsils large adenoids in the midline both abnormal appearing removed no bleeding Description of Procedure Patient identified consent verified the preoperative holding area. Patient brought to the operating. Time-out performed. General anesthesia induced endotracheal tube secured airway. Patient prepped draped position procedure confirmed 2nd time-out performed McIvor mouth gag inserted revealing tonsils described above. They were removed in the extracapsular plane using Coblator media medium settings water setting 3. In-between tonsils the McIvor mouth gag was lowered reopened to reveal no further bleeding are to allow blood flow to return to the tongue. After tonsils out Anesthesia Valsalva no bleeding ensued. Red rubber catheters were then inserted transnasally suspending the soft palate anteriorly. Adenoids viewed abnormal appearing the midline 2 to 3+ fronts chronic appearing. This was removed coblator setting of medium and sorry high and medium a no bleeding. Red rubber catheters McIvor mouth gag removed. Patient tolerated procedure well care the patient given Anesthesiology per all dictated portions procedure no complications. Blood loss 0 cc. Estimated Blood Loss 0 Drains No Packing No Pathology Yes Complications No immediate complications Condition Stable Disposition PACU [facility] Billing Surgery - Charge Forward: Surgery Billing
--- NOTE | 2025-05-06 10:48 | SUR.PHASEI ---
Into recovery, drowsy, pain medication given by anesthesia
--- NOTE | 2025-05-06 11:05 | WPDANESPN ---
Anes - Prog Note Post-Op Date/Time: 05/06/25 11:05 Cardiovascular status: normal Respiratory status: normal Airway patency: baseline Mental status: baseline Post-Op hydration status: normal Vital Signs: Last Vital Signs Temp 36.1 C L 05/06/25 10:25 Pulse 73 05/06/25 10:56 Resp 15 05/06/25 10:56 BP 101/87 05/06/25 10:56 Pulse Ox 100 05/06/25 10:56 O2 Del Method Room Air 05/06/25 10:56 Pain Score (VAS): 0 Patient Feedback: Patient satisfied with anesthetic care.
== END 2025-05-06 11:40 | disposition home or self-care (01) ==
PROVIDERS: Visit Provider Otolaryngology
PROC: (CPT 42821; principal; 2025-05-06 09:30)
DX: J35.3 Hypertrophy of tonsils with hypertrophy of adenoids (principal); R06.83 Snoring
CPT/HCPCS: 42821

== ENCOUNTER 2025-05-06 07:11 | Outpatient (NON) | payer OTHER, SELFPAY ==
--- NOTE | 2025-05-06 | S_PTH ---
PATIENT: Aspen Cho LOC: [facility] U#:[id number] AGE/SX: 19/F ROOM: RE05/06/[address]: Tone Arredondo MD : 2005 BED: DIS: 05/06/2025 SPEC #: [id number] RECD: 05/07/25 07:31 STATUS: SAIMA RELucila #: [id number] KAMI: 05/06/25 00:[address]: Tone Arredondo DEPT: [facility] Surgical RECD BY: Deborah Ozuna ENTERED: 05/07/25 07:32 SP TYPE: Surgical OTHR DR: UNKNOWN,DOCTOR Tissues: A - Tonsils Procedures: Gross and Microscopic Level 2
--- OUTSIDE RECORDS SUMMARY | 2025-05-07 07:13 | XMS_ITS | Referral Summary ---
Author Organization [facility] Address [address] [place] [phone] Care Team Providers Care Sign Designer Name Role Phone Evelin Mac MD Primary Care Prov ider Encounters Date Type Department Care Team Description 04/03/2025 Results Follow-Up [facility] Res[facility] Clinic at [address] [place] [phone] Evelin Mac MD Hepatitis C (HCV) RNA PCR, quantitative Blood, Hepatitis B Surface Antigen Blood, Hepatitis B surface antibody (immune status) Blood, Additional followed-up results: 2 03/28/2025 Orders Only [facility] at [address] [place] [address] Evelin Mac MD Need for hepatitis B screening test (Primary Dx) 03/28/2025 10:14 AM CDT - 03/28/2025 11:59 PM CDT Hospital Encounter [address] [id number] Need for hepatitis C screening test; Need for hepatitis B screening test; Encounter for screening for HIV; Projectile vomiting, unspecified whether nausea present Discharge Disposition: Discharge to home or self care 03/28/2025 Orders Only [facility] at [address] [place] [phone] Evelin Mac MD Hx of infectious mononucleosis (Primary Dx) 03/28/2025 10:15 AM CDT Lab [facility] Outpatient Lab at [address] [phone] 03/28/2025 Telephone [facility] Residency Clinic at [address] [phone] Evelin Mac MD 03/28/2025 8:30 AM CDT Office Visit [facility] Residency Clinic at [address] [phone] Evelin Mac MD Hx of infectious mononucleosis (Primary Dx); Projectile vomiting, unspecified whether nausea present; Dysuria; Encounter for screening for HIV; Need for hepatitis B screening test; Need for hepatitis C screening test 03/15/2025 6:08 PM CDT - 03/15/2025 11:59 PM CDT Hospital Encounter [address] [address] Abdominal pain Discharge Disposition: Discharge to home or self care 03/15/2025 Results Follow-Up [facility] at [place] [address] [place] [place] [phone] Alyssa Judge NP POCT urinalysis dipstick, Urine culture Urine, clean voided 03/15/2025 12:30 PM CDT Office Visit [facility] [place] [address] [place] [phone] Alyssa Judge NP Suspected COVID-19 virus infection [...] on file 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 Testing performed by: [facility], [address] [place]., [address] Blood 03/28/2025 10:1 4 AM CDT 03/28/2025 5:14 PM CDT us Evelin Mac MD LAB BLOOD ORDERABL ES Final Result Performing Organization Address [facility] de Phone Number SKY [address] [place] [address] * Hepatitis C (HCV) RNA PCR, quantitative Blood (03/28/2025 10:14 AM CDT) [facility] HCV RNA result Not Detected [facility] Comment: The quantifiable range of this assay is 15 IU/mL to 100,000,000 IU/mL (1.18 log IU/mL to 8.00 log IU/mL). Testing was performed by the RIGOBERTO 6800 HCV Test ([employer] Testing performed at [facility] Current Interpretive Data was last revised on 2021 Testing performed by: [facility], [address] [place]., [address] Blood 03/28/2025 10:1 4 AM CDT 03/28/2025 5:57 PM CDT us Evelin Mac MD LAB MICROBIOLOGY - GENERAL ORDERABLES Final Result Performing Organization Address [facility] [place] [address] [address] [place] [address] [facility] * Hepatitis B surface antibody (immune status) Blood (03/28/2025 10:14 AM CDT) [facility] HBsAb (immune status) Nonreactive Comment: Interpretive Data [...] GENERAL ORDERABLES Final Result Performing Organization Address [facility] Co de Phone Number SKY [phone] [address] [facility] [place] [address] * Hepatitis B Surface Antigen Blood (03/28/2025 10:14 AM CDT) Pathologist [facility] HepBsAg Nonreactive Nonreactive Blood 03/28/2025 10:1 4 AM CDT 03/28/2025 2:09 PM CDT us Evelin Mac MD LAB MICROBIOLOGY - GENERAL ORDERABLES Final Result Performing Organization Address [facility] de Phone Number SKY [phone] [address] [facility] [place] [address] * (ABNORMAL) POCT urinalysis dipstick (03/28/2025 8:47 AM CDT) Color, Urine, POC Yellow Clarity, ur, POC Cloudy(A) Clear Glucose, ur, POC Negative Negative Bilirubin, ur, POC Negative Negative Ketones, ur, POC Negative Negative Specific [place], POC 1.020 1.003 - 1.030 Blood, ur, POC Hemolyzed, trace(A) Negative pH, ur, POC 6.0 5.0 - 8.0 Protein, ur, POC Negative Negative Urobilinogen, urine, POC 0.2 0.2 - 1.0 mg/dL Nitrite, ur, POC Negative Negative Leukocytes, ur, POC Large(A) Negative Lot Number [id number] Urine 03/28/2025 8:47 AM CDT us Evelin [...] Klebsiella pneumoniae (.) Comment:Testing performed by : [facility], [address] [place]., [address] Organism KLEBSIELLA PNEUMONIAE SKY [place]IS Urine, clean voided 03/15/2025 12:42 PM CDT 03/15/2025 7:47 PM CDT Narrative SKY - 03/17/2025 1:10 PM CDT Testing performed by [facility] Microbiology Laboratory ([phone]) Organism Antibiotic Method Susceptibility Klebsiella pneumoniae Ampicillin [...] - GENERAL ORDERABLES Final Result SKY [place] [address] [address] Department [place] [address] * (ABNORMAL) POCT urinalysis dipstick (03/15/2025 12:41 PM CDT) [facility] Color, Urine, POC Annel Clarity, ur, POC Clear Clear Glucose, ur, POC Negative Negative Bilirubin, ur, POC Negative Negative Ketones, ur, POC Negative Negative Specific [place], POC 1.020 1.003 - 1.030 Blood, ur, POC Trace(A) Negative pH, ur, POC 6.0 5.0 - 8.0 Protein, ur, POC Negative Negative Urobilinogen, urine, POC 0.2 0.2 - 1.0 mg/dL Nitrite, ur, POC Negative Negative Leukocytes, ur, POC Small(A) Negative Lot Number [id number] Urine 03/15/2025 12:4 1 PM CDT Alyssa Judge NP POINT OF CARE TEST ORDERAB LES Final Result * COVID-19 POC (03/15/2025 12:39 PM CDT) [facility] COVID-19 Ag POC (BD Veritor) Presumptive Negative Presumptive Negative, Invalid [facility] Nasal 03/15/2025 12:3 9 PM CDT Result [facility] Alyssa Judge NP POINT OF CARE TEST ORDERAB LES Final Result [facility] [address] [place] [address] * POCT influenza A/B (03/15/2025 12:39 PM CDT) [facility] Rapid Influenza A Ag Negative Negative, Invalid Rapid Influenza B Ag Negative Negative, Invalid Nasal 03/15/2025 12:3 9 PM CDT Alyssa Judge NP POINT OF CARE TEST ORDERAB LES Final Result * POCT rapid strep A (03/15/2025 12:39 PM CDT) [facility] Rapid Strep A, POC Negative Negative Swab 03/15/2025 12:3 9 PM CDT Alyssa Judge NP POINT OF CARE TEST ORDERAB LES Final Result from Last 3 Months [facility] Care Teams Sign Designer Relationship Specialty Start Date End Date Evelin Mac MD [address] [place] [id number] PCP - General Family Medicine 03/28/25
--- OUTSIDE RECORDS SUMMARY | 2025-05-07 07:14 | XMS_ITS | Clinical Summary ---
Author Organization [facility] Address [facility] [place] [address] Care Team Providers Care Vision Rehabilitation Therapist Name Role Phone Evelin Mac MD Primary [...] Department Care Team Description 04/03/2025 Results Follow-Up [facility] Residency Clinic at [address] [phone] Evelin Mac MD Hepatitis C (HCV) RNA PCR, quantitative Blood, Hepatitis B Surface Antigen Blood, Hepatitis B surface antibody (immune status) Blood, Additional followed-up results: 2 03/28/2025 10:15 AM CDT Lab [facility] Medical Group Outpatient Lab at [address] [phone] 03/28/2025 10:14 AM CDT - 03/28/2025 11:59 PM CDT Hospital Encounter [address] [address] Need for hepatitis C screening test; Need for hepatitis B screening test; Encounter for screening for HIV; Projectile vomiting, unspecified whether nausea present Discharge Disposition: Discharge to home or self care 03/28/2025 8:30 AM CDT Office Visit [facility] Medical [facility] Residency Clinic at [address] [phone] Evelin Mac MD Hx of infectious mononucleosis (Primary Dx); Projectile vomiting, unspecified whether nausea present; Dysuria; Encounter for screening for HIV; Need for hepatitis B screening test; Need for hepatitis C screening test 03/28/2025 Orders Only [facility] Medical Group Residency Clinic at [address] [place] [address] Evelin Mac MD Need for hepatitis B screening test (Primary Dx) 03/28/2025 Orders Only [facility] Medical [facility] Residency Clinic at [address] [place] [address] Evelin Mac MD Hx of infectious mononucleosis (Primary Dx) 03/28/2025 Telephone [facility] Medical [facility] Residency Clinic at [address] [place] [phone] Evelin Mac MD 03/15/2025 6:08 PM CDT - 03/15/2025 11:59 PM [place] [address] Abdominal pain Discharge Disposition: Discharge to home or self care 03/15/2025 12:30 PM CDT Office Visit [facility] Medical [facility]venient Care at [address] [place] [phone] Alyssa Judge NP Suspected COVID-19 virus infection (Primary Dx); Abdominal pain; Viral syndrome 03/15/2025 Results Follow-Up [facility] Care at [address] [place] [phone] Alyssa Judge NP POCT urinalysis dipstick, Urine [...] on file 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 Gender Identity Not on file Sexual Orientation [...] Regular Well Visit/Exam 18-64 2022 Influenza Vaccine (#1) 2025 DTaP/Tdap/Td Vaccine (7 - Td or [...] GENERAL ORDERABLES Final Result Performing Organization Address [facility] [place] Number [place] [address] [address] [place] [address] * Tissue transglutaminase IgA (TGG-IgA Ab) (03/28/2025 10:14 AM CDT) [facility] TTG ab, IgA <0.5 <=14.9 units/mL Comment: Interpretive data Negative: <15 units/mL Positive: > or equal to 15 units/mL Current interpretive data was last revised on 2017. Testing performed by: [facility], [address] [place]., [address] Blood 03/28/2025 10:1 4 AM CDT 03/28/2025 5:14 PM CDT Result [facility] Evelin Mac MD LAB BLOOD ORDERABL ES Final Result Performing Organization Address [facility] [place] [address] [address] [place] [address] * Hepatitis C (HCV) RNA PCR, quantitative Blood (03/28/2025 10:14 AM CDT) [facility] HCV RNA result Not Detected [facility] Comment: The quantifiable range of this assay is 15 IU/mL to 100,000,000 IU/mL (1.18 log IU/mL to 8.00 log IU/mL). Testing was performed by the RIGOBERTO 6800 HCV Test ([employer] Testing performed at [facility] Current Interpretive Data was last revised on 2021 Testing performed by: [facility], [address] [facility], [place]., [address] Blood 03/28/2025 10:1 4 AM CDT 03/28/2025 5:57 PM CDT us Evelin Mac MD LAB MICROBIOLOGY - GENERAL ORDERABLES Final Result Performing Organization Address [facility] Co de Phone Number SKY [place] [address] [address] Department [place] [address] [facility] * Hepatitis B surface antibody (immune status) [...] GENERAL ORDERABLES Final Result Performing Organization Address [facility] Co de Phone Number [facility] [place] [place] [address] [address] [place] [address] * Hepatitis B Surface Antigen Blood (03/28/2025 10:14 AM CDT) HepBsAg Nonreactive Nonreactive Blood 03/28/2025 10:1 4 AM CDT 03/28/2025 2:09 PM CDT Evelin Mac MD LAB MICROBIOLOGY - GENERAL ORDERABLES Final Result [place] [address] [address] Department [place] [address] * (ABNORMAL) POCT urinalysis dipstick (03/28/2025 8:47 AM CDT) Color, Urine, POC Yellow Clarity, ur, POC Cloudy(A) Clear Glucose, ur, POC Negative Negative Bilirubin, ur, POC Negative Negative Ketones, ur, POC Negative Negative Specific [place], POC 1.020 1.003 - 1.030 Blood, ur, POC Hemolyzed, trace(A) Negative pH, ur, POC 6.0 5.0 - 8.0 Protein, ur, POC Negative Negative Urobilinogen, urine, POC 0.2 0.2 - 1.0 mg/dL Nitrite, ur, POC Negative Negative Leukocytes, ur, POC Large(A) Negative Lot Number [id number] Urine 03/28/2025 8:47 AM CDT Evelin Mac MD POINT OF CARE TEST ORDERABLES Final Result * POCT hCG, urine (03/15/2025 12:52 PM CDT) Pathologist [facility] HCG, ur, POC Negative Negative Lot Number [id number] QC Backgroud Clear Acceptable QC Control Line Acceptable Urine 03/15/2025 12:5 2 PM CDT Alyssa Judge NP POINT OF CARE TEST ORDERAB LES Final Result * (ABNORMAL) Urine culture Urine, clean voided (03/15/2025 12:42 PM CDT) Report Final Report: Greater than or equal to 100,000 colonies/mL of Klebsiella pneumoniae (.) Comment:Testing performed by : [facility], [address] [facility], [place]., [address] Organism KLEBSIELLA PNEUMONIAE SKY [place]ARRIS Urine, clean voided 03/15/2025 12:42 PM CDT 03/15/2025 7:47 PM CDT Narrative SKY HARRIS - 03/17/2025 1:10 PM CDT Testing performed by [facility] Microbiology Laboratory ([phone]) Organism Antibiotic Method Susceptibility Klebsiella pneumoniae Ampicillin [...] MICROBIOLOGY - GENERAL ORDERABLES Final Result SKY [address] [address] Department [place] [address] * (ABNORMAL) POCT urinalysis dipstick (03/15/2025 12:41 PM CDT) Pathologist [facility] Color, Urine, POC Annel Clarity, ur, POC Clear Clear Glucose, ur, POC Negative Negative Bilirubin, ur, POC Negative Negative Ketones, ur, POC Negative Negative Specific [place], POC 1.020 1.003 - 1.030 Blood, ur, POC Trace(A) Negative pH, ur, POC 6.0 5.0 - 8.0 Protein, ur, POC Negative Negative Urobilinogen, urine, POC 0.2 0.2 - 1.0 mg/dL Nitrite, ur, POC Negative Negative Leukocytes, ur, POC Small(A) Negative Lot Number [id number] Urine 03/15/2025 12:4 1 PM CDT Alyssa Judge NP POINT OF CARE TEST ORDERAB LES Final Result * COVID-19 POC (03/15/2025 12:39 PM CDT) Pathologist [facility] COVID-19 Ag POC (BD Veritor) Presumptive Negative Presumptive Negative, Invalid [facility] Nasal 03/15/2025 12:3 9 PM CDT Alyssa Judge NP POINT OF CARE TEST ORDERAB LES Final Result [facility] [address] [place] [address], [facility] * POCT influenza A/B (03/15/2025 12:39 PM [...] Result from Last 3 Months Insurance [facility] [facility] [address] [place] [id number] Care Teams Vision Rehabilitation Therapist Relationship Specialty Start Date End Date Evelin Mac MD [address] [address] PCP - General Family Medicine 03/28/25
== END 2025-05-06 07:12 | disposition home or self-care (01) ==
LOC: ANHLAB 05-07 07:12
PROVIDERS: Visit Provider Otolaryngology
DX: J03.91 Acute recurrent tonsillitis, unspecified (principal); R06.83 Snoring; J35.2 Hypertrophy of adenoids
CPT/HCPCS: 88302